=== PATIENT | male | born 1985 | race Caucasian/White ===

== ENCOUNTER 2017-06-10 12:25 | Emergency (ER) | payer OTHER ==
[~2017-06-10] VITALS: Ht 182.9 cm; Wt 115.3 kg
[2017-06-10 12:56] VITALS: BP 142/76
--- NOTE | 2017-06-10 14:19 | NUR ---
PT TAKEN TO BED 11.
--- NOTE | 2017-06-10 14:33 | NUR ---
PT RETURNED FROM XRAY VIA W/C ACCOMPANIED BY [employer].
--- NOTE | 2017-06-10 14:34 | NUR ---
32M BIB SELF C/O LEFT LOWER BACK PAIN, PRESSURE, RADIATES TO LEFT KNEE AND LEFT HAMSTRING, 12/25 X 9 DAYS; PT STATES DROPPED CRATE AT WORK, LANDED ON LEFT KNEE, AND "FELT A PINCH IN MY LEFT BACK" WHEN PT LIFTED CRATE FROM KNEE; MILD ERYTHEMA NOTED TO LEFT KNEE AT THIS TIME, LEFT POPLITEAL +3, LEFT CAP REFILL IMMEDIATE, NO LOSS OF SENSATION OR ROM TO LEFT LEG AT THIS TIME; PT AA&OX4, BL LUNG SOUNDS CLEAR, RR EVEN/UNLABORED, SKIN IS WARM/DRY/INTACT AT THIS TIME; PT STATES NO N/V/D AT THIS TIME; PT RESTING IN BED WITH HOB ELEVATED AND IN LOWEST POSITION; POSITIONED FOR COMFORT; ER MD MADE AWARE OF STATUS. WILL CONTINUE TO MONITOR.
--- NOTE | 2017-06-10 15:30 | NUR ---
PT APPEARS TO BE RESTING COMFORTABLY IN BED; RR EVEN/UNLABORED; POSITIONED FOR COMFORT; WILL CONTINUE TO MONITOR.
[2017-06-10 17:16] VITALS: BP 138/74
--- NOTE | 2017-06-10 17:16 | NUR ---
Patient discharged with v/s stable. Written and verbal after care instructions given and explained. Patient alert, oriented and verbalized understanding of instructions. Ambulatory with steady gait. All questions addressed prior to discharge. ID band removed. Patient advised to follow up with PMD. Rx of IBUPROFEN 800MG given. Patient educated on indication of medication including possible reaction and side effects. Opportunity to ask questions provided and answered.
== END 2017-06-10 17:16 | disposition home or self-care (01) ==
LOC: MED 12:25
DX: S83.92XA Sprain of unspecified site of left knee, initial encounter (principal); S33.5XXA Sprain of ligaments of lumbar spine, initial encounter; X58.XXXA Exposure to other specified factors, initial encounter; Y93.89 Activity, other specified; Y92.89 Other specified places as the place of occurrence of the external cause; Y99.8 Other external cause status
CPT/HCPCS: 73562; 99284